=== PATIENT | female | born 1995 | race Caucasian/White ===

== ENCOUNTER → 2016-10-26 | Outpatient (CLI) | payer OTHER ==
[~2016-10-26] MED LIST: ATEN-173 PO; NORE-14 PO
[2016-10-28 01:33] LABS: CHLAMYDIA TRACH RNA*** NOT DETECTED (NOT DETECTED); GC (NEIS GONORRHOEAE)RNA** NOT DETECTED (NOT DETECTED)
== END | disposition home or self-care (01) ==
LOC: C.LABSPEC 11:29
PROVIDERS: ATTEND Obstetrics & Gynecology
DX: Z11.3 Encounter for screening for infections with a predominantly sexual mode of transmission (principal)

== ENCOUNTER → 2016-10-26 | Outpatient (CLI) | payer OTHER | END | disposition home or self-care (01) | LOC: C.PAPS 11:40 | PROVIDERS: ATTEND Obstetrics & Gynecology | DX: Z12.4 Encounter for screening for malignant neoplasm of cervix (principal) ==

== ENCOUNTER → 2016-12-26 | Outpatient (CLI) | payer OTHER, BC ==
[2016-12-26 17:46] LABS: HEMATOCRIT 34.8 % (37-47); MEAN CELL VOLUME 85.7 fL (80-100); MEAN CORPUSCULAR HEMOGLOBIN 29.6 pg (25-34); MEAN CORPUSCULAR HGB CONC 34.5 g/dl (32-36); MEAN PLATELET VOLUME 10.8 fL (7.4-10.4); PLATELET COUNT 338 K/uL (130-400); RED BLOOD COUNT 4.06 M/uL (4.2-5.4); WHITE BLOOD COUNT 7.46 K/uL (4.8-10.8)
[2016-12-26 17:58] LABS: BLOOD UREA NITROGEN 14 mg/dl (7-18); BUN/CREATININE RATIO 19.4 (10-20); CALCIUM 9.2 mg/dl (8.5-10.1); CARBON DIOXIDE 25 mmol/L (21-32); CHLORIDE 105 mmol/L (98-107); CREATININE 0.72 mg/dl (0.60-1.20); GLUCOSE 88 mg/dl (70-99); POTASSIUM 3.7 mmol/L (3.5-5.1); SODIUM 139 mmol/L (136-145)
== END | disposition home or self-care (01) ==
LOC: C.LAB1850 16:25
PROVIDERS: ATTEND Internal Medicine Cardiovascular Disease
DX: R53.83 Other fatigue (principal)

== ENCOUNTER → 2017-11-23 | Outpatient (CLI) | payer BC | END | disposition home or self-care (01) | LOC: C.LABSPEC 15:08 | PROVIDERS: ATTEND Physician Assistant | DX: Z01.419 Encounter for gynecological examination (general) (routine) without abnormal findings (principal) ==

== ENCOUNTER → 2017-11-23 | Outpatient (CLI) | payer BC | END | disposition home or self-care (01) | LOC: C.PAPS 16:16 | PROVIDERS: ATTEND Physician Assistant | DX: Z01.419 Encounter for gynecological examination (general) (routine) without abnormal findings (principal) ==

== ENCOUNTER 2022-10-10 03:58 | Inpatient (IN) ==
[2022-10-10] MEDS ORDERED: LACTATED RINGER'S 1,000 ML IV SCH ×2 (05:30→09:17)
[2022-10-10 05:47] LABS: Basophils # (auto) 0.06 K/uL (0-0.2); Basophils % (auto) 0.6 %; Eosinophils # (auto) 0.08 K/uL (0-0.50); Eosinophils % (auto) 0.7 %; Hematocrit (blood only) 31.7 % (34.1-44.9); Hemoglobin 10.4 g/dl (12.0-16.0); Immature Granulocytes # (auto) 0.12 K/uL (0.00-0.02); Immature Granulocytes % (auto) 1.1 %; Lymphocytes # (auto) 2.43 K/uL (1.2-3.4); Lymphocytes % (auto) 22.5 %; Mean Corpuscular Hemoglobin 28.6 pg (25.0-34.0); Mean Corpuscular Hgb Conc 32.8 g/dL (32.0-36.0); Mean Corpuscular Volume 87.1 fL (80.0-100.0); Mean Platelet Volume 11.3 fL (9.4-12.3); Monocytes # (auto) 0.96 K/uL (0.24-0.82); Monocytes % (auto) 8.9 %; Neutrophils # (auto) 7.13 K/uL (1.4-6.5); Neutrophils % (auto) 66.2 %; Platelet Count 281 K/uL (130-400); RDW Coefficient of Variation 14.4 % (11.5-14.5); RDW Standard Deviation 44.9 fL (36.4-46.3); Red Blood Count 3.64 M/uL (3.93-5.22); White Blood Count 10.78 K/ul (4.8-10.8)
[2022-10-10] MEDS ORDERED: ceFAZolin 2000MG 2,000 MG/15 ML SYR IV ONE (06:00)
[2022-10-10] MEDS ORDERED: CITRIC ACID/SODIUM CITRATE 15 ML UDC PO SCH (06:00)
--- NOTE | 2022-10-10 06:10 | History & Physical Report ---
Date of Service October 10, 2022 Assessment & Plan (1) : Plan: Admit to L&D. EFM/toco. Labs. Informed consent for section. Questions answered. Will proceed to OR for delivery by d/t breech presentation. Patient is agreeable. (2) Breech presentation: Admission and Anticipated Discharge Date Admission Date: October 10, 2022 History of Present Illness Chief Complaint: SROM Primary Care Provider: NO PCP 27yo @ 38 10/15, large gush of clear fluid at 0300 today. + movement, no vaginal bleeding. Occ ctx. Prolonged QT Interval -on metoprolol (managed by cardiology) -q4wk growths Hx Spinal Fusion -3rd trimester anesthesia consult-scheduled 08/05/22 1pm BREECH PRESENTATION C/S SCHEDULED FOR 10/21/[address] RIVERA Allergies Allergy/AdvReac Type Severity Reaction Status Date / Time Macrolide Antibiotics Allergy Intermediate D/t Verified 10/10/22 05:26 Prolonged QT Home Medications Medication Instructions Recorded Confirmed Type prenat.vits,tammy,[id number] 1 tab PO DAILY 03/11/22 10/06/22 History metoprolol tartrate 25 mg tablet 25 mg PO BID #60 tabs 07/25/22 10/06/22 Rx Patient History Medical History Anxiety History of COVID-19 Covid positive 06/05 (Home test + [place]), symptoms at time: cough, fever Long QT syndrome [facility] [place] cardiology office visit (07/25/22): "long QT syndrome. She was diagnosed with long QT syndrome at the age of 3 just following the recognition of long QT syndrome in her mother. Both her mother and the patient have a positive KCNQ1 gene mutation. The patient has never suffered an episode of syncope or presyncope." - pt changed from atenolol to metoprolol for her Scoliosis S-shaped thoracolumbar scoliosis. There is a 27 degree scoliosis convex to the left as measured from the superior T11 endplate to the inferior L4 endplate). There is a thoracic dextroscoliosis of 34 degrees as measured from the superior T11 endplate to the superior T4 endplate - per 02/21/08 x-ray Surgical History History of back surgery Fusion (for scoliosis) - 2014 Family History Grandmother Diabetes Mother Hypothyroidism Long QT syndrome Father Pure hypercholesterolemia Grandmother (Maternal) Long QT syndrome Sister Migraine headache Other Heart disease Hypertension Thyroid disorder Denies family history of Pancreatic cancer Ovarian cancer Prostate cancer Breast cancer Colorectal cancer Uterine cancer Social History Smoking Status: Never smoker Hx Alcohol Use: No Hx Substance Use: No Preferred Language: Maltese 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 Beliefs That Will Affect Care: None marital status: marital status details: Bobby Hannon (28) [phone] Current Living Situation: Spouse Current Living Situation Comment: lives with spouse, 3 dogs current occupational status: employed current occupation: [employer] Other Information That Helps Us Care for You: No Feels Safe at Home: Yes Safety Concerns: Feels Safe At This Time Review of Systems All systems reviewed & are unremarkable except as noted in HPI & below Physical Exam Physical Exam: Cervix 1.5/75/-2 per RN FHT Cat 1 [place] occ Constitutional: WD/WN, vitals as above Respiratory: normal respiratory effort, lungs clear to auscultation no respiratory distress Cardiovascular: Rate/Rhythm: regular rate and regular rhythm Gastrointestinal (Abdomen): Inspection/Auscultation: abdomen normal to inspection Percussion/Palpation: abdomen soft; abdomen nontender Gravid. No s/s chorio or abruption. Skin: no rashes, warm and dry Psychiatric: A+Ox3, euthymic affect Results & Data ([facility]) Vital Signs (Past 12 Hours) Vital Signs Temp Pulse Resp BP 10/10/22 04:12 36.7 C 85 20 131/99 10/10/22 04:10 85 131/99 Coding Level of Care Code None Diagnoses Z34.90 Breech presentation O32.1XX0
[2022-10-10] MEDS ORDERED: fentaNYL citrate 100 MCG/2 ML VIAL ONE (06:50)
[2022-10-10] MEDS ORDERED: MoRPHine SULFATE PF 1 MG/ML 10 ML AMP/VIAL ONE (06:50)
[2022-10-10] MEDS ORDERED: HYDROmorphone INJ 0.5 MG/0.5 ML SYR IV PRN (07:10)
[2022-10-10] MEDS ORDERED: MoRPHine SULFATE PF 1 MG/ML 10 ML AMP/VIAL INT SPINAL ONE (07:10)
[2022-10-10] MEDS ORDERED: NALOXONE HCL 0.08 MG in SYRINGE 1.8 ML IV PRN (07:10)
[2022-10-10] MEDS ORDERED: diphenhydrAMINE 50 MG/ML VIAL IV PRN (07:10)
[2022-10-10] MEDS ORDERED: LACTATED RINGER'S 500 ML IV PRN (07:10)
[2022-10-10] MEDS ORDERED: METOCLOPRAMIDE HCL 10 MG in SODIUM CHLORIDE 0.9% 50 ML IV PRN (07:10)
[2022-10-10] MEDS ORDERED: NALOXONE HCL 1 MG in SODIUM CHLORIDE 0.9% 1000ML 1,000 ML IV PRN (07:10)
[2022-10-10] MEDS ORDERED: NALOXONE HCL 0.4 MG/1 ML VIAL/CARP IV PRN (07:10)
[2022-10-10] MEDS ORDERED: ePHEDrine sulfate 50 MG/ML AMP IV PRN (07:10)
[2022-10-10] MEDS ORDERED: NALBUPHINE HCL INJ 10 MG/ML AMP IV PRN (07:10)
--- NOTE | 2022-10-10 07:10 | Anesthesiology Consultation ---
Date of Service October 10, 2022 Assessment & Plan ASA [id number] Proposed Anesthesia Anesthesia Type: MAC Spinal Risk / Benefits Reviewed With: PT / POA / Parent / Guardian, Accepts Plan and Informed Consent Obtained Additional Comments: pt did not take am Metoprol due at 630-700. History Surgery Operation Date: 10/10/22 07:30 Proposed Procedures p Section in LD(Bilateral) - Miri Jung DO Height/Weight Height: 5 ft 2 in Weight: 76.657 kg Allergies Allergy/AdvReac Type Severity Reaction Status Date / Time Macrolide Antibiotics Allergy Intermediate D/t Verified 10/10/22 05:26 Prolonged QT Medications Home Medications Medication Instructions Recorded Confirmed Last Taken prenat.vits,tammy,hqe-hpii-qlryu 1 tab PO DAILY 03/11/22 10/10/22 10/09/22 metoprolol tartrate 25 mg tablet 25 mg PO BID #60 tabs 07/25/22 10/10/22 10/09/22 20:00 NPO Date Last Intake of Fluids: 10/10/22 Time Last Intake of Fluids: 00:00 Date Last Intake of Solids: 10/10/22 Time Last Intake of Solids: 00:00 Past Medical History Medical History Anxiety History of COVID-19 Covid positive 06/05 (Home test + [place]), symptoms at time: cough, fever Long QT syndrome [facility] [place] (07/25/22): "long QT syndrome. She was diagnosed with long QT syndrome at the age of 3 just following the recognition of long QT syndrome in her mother. Both her mother and the patient have a positive KCNQ1 gene mutation. The patient has never suffered an episode of syncope or presyncope." - pt changed from atenolol to metoprolol for her Scoliosis S-shaped thoracolumbar scoliosis. There is a 27 degree scoliosis convex to the left as measured from the superior T11 endplate to the inferior L4 endplate). There is a thoracic dextroscoliosis of 34 degrees as measured from the superior T11 endplate to the superior T4 endplate - per 02/21/08 x-ray Exercise / Class Metabolic Activity II 4-5 Yardwork/Stairs/Walk up hill Past Family History Family History Grandmother Diabetes Mother Hypothyroidism Long QT syndrome Father Pure hypercholesterolemia Grandmother (Maternal) Long QT syndrome Sister Migraine headache Other Heart disease Hypertension Thyroid disorder Denies family history of Pancreatic cancer Ovarian cancer Prostate cancer Breast cancer Colorectal cancer Uterine cancer Past Surgical History Surgical History History of back surgery Fusion (for scoliosis) - 2014 Past Anesthesia History No Hx of Anesthesia Complications and No Family Hx of Anesthesia Complications History of PONV No Hx of PONV and No Hx of Motion Sickness Social History Smoking Status: Never smoker Hx Alcohol Use: No Hx Substance Use: No Review of Systems denies fever/cough/ colds/ chest pain/ SOB/ MADHAV denies MADHAV Physical Exam Vital Signs Last Vital Signs Temp 36.7 C 10/10/22 04:12 Pulse 78 10/10/22 06:56 Resp 20 10/10/22 04:12 BP 141/85 H 10/10/22 06:56 ENMT Mouth: no TMJ abnormality and no dentition abnormality Thyromental Distance: > or= 3.5 Finger Breadths Mallampati Class: II Neck neck extension not limited Respiratory normal respiratory effort; no respiratory distress Auscultation: lungs clear to auscultation bilaterally Cardiovascular Rate/Rhythm: regular rate and regular rhythm Neurologic moves all extremities Psychiatric Orientation: alert and oriented x 3 Testing Laboratory Results 10/10/22 05:38 Blood Type A Positive 10/10/22 05:38 Antibody Screen NEGATIVE 10/10/22 05:38
[2022-10-10] MEDS ORDERED: DC INTRASPINAL MORPHINE SCH (07:15)
[2022-10-10] MEDS ORDERED: SODIUM CHLORIDE 0.9% 1000ML 1,000 ML IV SCH (07:15)
[2022-10-10] MEDS ORDERED: NO NARCOTICS OR SEDATIVES SCH (07:15)
[2022-10-10 08:33] LABS: CO2 Cord Arterial Blood 66 mmHg (39.1-73.5); HCO3 Cord Arterial Blood 29 mmol/L (19.7-28.5); Oxygen Sat Cord Arterial Blood < 60.0 % (<60); PO2 Cord Arterial Blood 12 mmHg (4.1-31.7); pH Cord Arterial Blood 7.25 (7.1-7.38)
[2022-10-10 08:34] LABS: Base Excess Cord Venous Blood -2.1 mEq/L (-7.7-1.9); Cord Venous Blood HCO3 27 mmol/L (18.4-26.8); Cord Venous Blood PCO2 62 mmHg (30.4-57.2); Cord Venous Blood PO2 9 mmHg (14.1-43.3); Cord Venous Blood pH 7.24 (7.20-7.44); O2 Saturation Cord Venous Bld < 60.0 % (<68)
[2022-10-10] MEDS ORDERED: PHENYLEPHRINE 100MCG/ML 5ML SYR ONE (08:39)
[2022-10-10] MEDS ORDERED: ESMOLOL HCL INJ 10 MG/ML 10ML VIAL IV ONE (08:41)
[2022-10-10] MEDS ORDERED: OXYTOCIN 10 UNITS/ML 10ML VIAL ONE (08:54)
--- NOTE | 2022-10-10 09:13 | Operative Report ---
PG Post Operative Report Pre & Post Diagnosis Operation Date: 10/10/22 07:30 Pre-Op Diagnosis: Breech Presentation. Spontaneous rupture of membranes. Post-Op Diagnosis: Primary section. Breech Presentation. Spontaneous rupture of membranes. I identified the patient and participated in the time-out.: Yes Procedure Operation Date: 10/10/22 07:30 Actual Procedures Primary low transverse Section in LD, delivery of live female child at 0755. (Bilateral) - Miri Jung DO Surgeon Miri Jung DO Septic Tank Servicer Deandra López RN Estimated Blood Loss 700 Findings Consistent with Post-Op Diagnosis Viable female , Apgars 8/9. Weight pending, please see nursing records. Specimens placenta, cord blood, cord gas Drains [place] clear yellow Anesthesia Type Spinal Complications none Disposition Accompanied Patient To Recovery: No Disposition: L&D Indications 27yo @ 38 10/15, SROM and breech presentation. Description of Procedure The patient was seen in her labor and delivery room, risks benefits and alternatives to surgery were reviewed. Informed consent obtained. Questions were answered. She was taken to the operating room, spinal anesthesia was administered. She was then prepared and draped in the usual sterile fashion in the supine position with a leftward tilt. Timeout was confirmed. A Pfannenstiel skin incision was made with a scalpel, and carried through to the underlying layer of fascia. Fascia was nicked at midline, and this incision was extended bilaterally. The superior aspect of the fascial incision was grasped with Vinod clamps x2, elevated off the underlying rectus abdominis muscles, and dissected sharply and bluntly. In similar fashion, the inferior aspect of the fascial incision was dissected. The rectus abdominis muscles were , and the peritoneum was entered bluntly digitally. This was extended bilaterally. The bladder flap was taken down carefully using Metzenbaum scissors. Using a new scalpel, a low transverse uterine incision was created. Clear amniotic fluid noted. The infant was delivered from a michell breech presentation. The buttocks delivered, bilateral legs were swept medially, then arms swept medially and head delivered easily. Spontaneous cry on the field. The cord was doubly clamped and cut, and the infant was handed off to the waiting adjunct psychology faculty member. A segment was retained for cord gases. Cord blood was obtained. The placenta was delivered spontaneously intact. The uterus was exteriorized, and cleared of all clots and debris. Bilateral extensions into uterine vessels. These were secured immediately with [id number] sutures with 0 Vicryl. The hysterotomy incision was then reapproximated using 0 Vicryl in a running locked stitch. A second layer of the same suture was used to imbricate the incision. Posterior uterus was evaluated and normal. The uterus was returned to the abdomen, and gutters were cleared of clots and debris. Excellent hemostasis was observed. The fascial incision was reapproximated using 0 Vicryl in a running stitch. The subcutaneous tissue was irrigated, and reapproximated using 2-0 plain gut in a running stitch. The skin was reapproximated using 4-0 Vicryl in a running subcuticular stitch. Steri-Strips and a bandage were applied. The patient tolerated the procedure well, and will be taken to the recovery area in stable and good condition. Needle, sponge, instrument counts correct x 2. I attest to the content of the Intraoperative Record and any orders documented therein. Any exceptions are noted below. OB Procedure Charges 00538
[2022-10-10] MEDS ORDERED: DIPHTHERIA/TETANUS/PERTUSSIS 0.5 ML SYR/VIAL IM ONE (09:17)
[2022-10-10] MEDS ORDERED: BENZOCAINE 20% AER SPR 82.5 GM CAN EXT PRN (09:17)
[2022-10-10] MEDS ORDERED: MAGNESIUM HYDROXIDE SUSP 30 ML UDC PO PRN (09:17)
[2022-10-10] MEDS ORDERED: SENNA 8.6 MG TAB PO PRN (09:17)
[2022-10-10] MEDS ORDERED: HYDROCORTISONE ACETATE 25 MG SUPP PR PRN (09:17)
[2022-10-10] MEDS: OXYTOCIN 30 UNITS in LACTATED RINGER'S 1,000 ML IV SCH ×2 (11:05→19:45)
[2022-10-10] MEDS: KETOROLAC 30 MG/ML VIAL IV PRN ×2 (13:48→19:43)
[2022-10-10] MEDS: SIMETHICONE 80 MG CHEW PO SCH ×3 (13:49→21:35)
--- NOTE | 2022-10-10 20:47 | Anesthesiology Progress Note ---
Date of Service October 10, 2022 Anesthesia Post Procedure Vital Signs Vital Signs: Temp Pulse Pulse Resp BP BP Pulse Ox 10/10/22 19:50 18 98 10/10/22 19:50 37.3 C 88 18 121/76 98 10/10/22 19:50 10/10/22 17:40 18 98 10/10/22 18:11 16 98 10/10/22 16:33 16 97 10/10/22 15:35 16 99 10/10/22 15:00 37.0 C 80 18 119/72 98 10/10/22 14:35 18 98 10/10/22 13:35 18 97 10/10/22 12:35 16 98 10/10/22 11:35 10/10/22 11:35 37.1 C 80 16 126/77 97 10/10/22 11:35 16 97 10/10/22 11:30 36.9 C 18 10/10/22 10:30 20 10/10/22 10:00 36.7 C 18 10/10/22 09:50 16 10/10/22 09:40 18 10/10/22 09:30 18 10/10/22 09:20 16 10/10/22 09:10 18 10/10/22 09:00 36.8 C 18 10/10/22 04:12 36.7 C 85 20 131/99 10/10/22 11:21 99 10/10/22 11:21 83 10/10/22 11:16 98 10/10/22 11:16 81 10/10/22 11:11 99 10/10/22 11:11 81 10/10/22 11:06 98 10/10/22 11:06 83 10/10/22 11:07 83 10/10/22 11:07 132/62 10/10/22 11:01 98 10/10/22 11:01 78 10/10/22 10:56 99 10/10/22 10:56 80 10/10/22 10:57 80 10/10/22 10:57 135/63 10/10/22 10:51 99 10/10/22 10:51 86 10/10/22 10:47 82 10/10/22 10:47 134/59 L 10/10/22 10:46 99 10/10/22 10:46 81 10/10/22 10:41 96 10/10/22 10:42 92 10/10/22 10:41 83 10/10/22 10:42 82 10/10/22 10:36 99 10/10/22 10:36 80 10/10/22 10:37 79 10/10/22 10:37 130/59 L 10/10/22 10:31 98 10/10/22 10:31 78 10/10/22 10:28 92 10/10/22 10:28 77 10/10/22 10:27 80 10/10/22 10:27 148/89 H 10/10/22 10:25 99 10/10/22 10:25 76 10/10/22 10:21 92 10/10/22 10:21 79 10/10/22 10:20 99 10/10/22 10:20 75 10/10/22 10:17 76 10/10/22 10:17 140/77 10/10/22 10:15 100 10/10/22 10:15 76 10/10/22 10:10 100 10/10/22 10:10 74 10/10/22 10:07 75 10/10/22 10:07 137/61 10/10/22 10:05 99 10/10/22 10:05 81 10/10/22 10:00 99 10/10/22 10:00 77 10/10/22 09:56 65 10/10/22 09:56 124/70 10/10/22 09:55 99 10/10/22 09:55 70 10/10/22 09:50 100 10/10/22 09:50 70 10/10/22 09:47 72 10/10/22 09:47 121/56 L 10/10/22 09:45 99 10/10/22 09:45 69 10/10/22 09:40 100 10/10/22 09:40 69 10/10/22 09:37 73 10/10/22 09:37 138/58 L 10/10/22 09:35 100 10/10/22 09:35 70 10/10/22 09:30 100 10/10/22 09:30 71 10/10/22 09:26 173 H 10/10/22 09:26 125/58 L 10/10/22 09:25 98 10/10/22 09:25 76 10/10/22 09:20 94 10/10/22 09:20 66 10/10/22 09:16 66 10/10/22 09:16 127/59 L 10/10/22 09:15 100 10/10/22 09:15 63 10/10/22 09:10 100 10/10/22 09:10 73 10/10/22 09:08 79 L 10/10/22 09:08 71 10/10/22 09:05 100 10/10/22 09:05 65 10/10/22 09:06 67 10/10/22 09:06 121/64 10/10/22 09:02 67 10/10/22 09:02 88/69 L 10/10/22 09:00 100 10/10/22 09:00 67 10/10/22 06:56 78 10/10/22 06:56 141/85 H 10/10/22 04:10 85 131/99 Pulse Ox O2 Del Method O2 Del Method 10/10/22 19:50 10/10/22 19:50 Room Air 10/10/22 19:50 98 Room Air 10/10/22 17:40 10/10/22 18:11 10/10/22 16:33 10/10/22 15:35 10/10/22 15:00 Room Air 10/10/22 14:35 10/10/22 13:35 10/10/22 12:35 10/10/22 11:35 Room Air 10/10/22 11:35 Room Air 10/10/22 11:35 10/10/22 11:30 10/10/22 10:30 10/10/22 10:00 10/10/22 09:50 10/10/22 09:40 10/10/22 09:30 10/10/22 09:20 10/10/22 09:10 10/10/22 09:00 10/10/22 04:12 10/10/22 11:21 10/10/22 11:21 10/10/22 11:16 10/10/22 11:16 10/10/22 11:11 10/10/22 11:11 10/10/22 11:06 10/10/22 11:06 10/10/22 11:07 10/10/22 11:07 10/10/22 11:01 10/10/22 11:01 10/10/22 10:56 10/10/22 10:56 10/10/22 10:57 10/10/22 10:57 10/10/22 10:51 10/10/22 10:51 10/10/22 10:47 10/10/22 10:47 10/10/22 10:46 10/10/22 10:46 10/10/22 10:41 10/10/22 10:42 10/10/22 10:41 10/10/22 10:42 10/10/22 10:36 10/10/22 10:36 10/10/22 10:37 10/10/22 10:37 10/10/22 10:31 10/10/22 10:31 10/10/22 10:28 10/10/22 10:28 10/10/22 10:27 10/10/22 10:27 10/10/22 10:25 10/10/22 10:25 10/10/22 10:21 10/10/22 10:21 10/10/22 10:20 10/10/22 10:20 10/10/22 10:17 10/10/22 10:17 10/10/22 10:15 10/10/22 10:15 10/10/22 10:10 10/10/22 10:10 10/10/22 10:07 10/10/22 10:07 10/10/22 10:05 10/10/22 10:05 10/10/22 10:00 10/10/22 10:00 10/10/22 09:56 10/10/22 09:56 10/10/22 09:55 10/10/22 09:55 10/10/22 09:50 10/10/22 09:50 10/10/22 09:47 10/10/22 09:47 10/10/22 09:45 10/10/22 09:45 10/10/22 09:40 10/10/22 09:40 10/10/22 09:37 10/10/22 09:37 10/10/22 09:35 10/10/22 09:35 10/10/22 09:30 10/10/22 09:30 10/10/22 09:26 10/10/22 09:26 10/10/22 09:25 10/10/22 09:25 10/10/22 09:20 10/10/22 09:20 10/10/22 09:16 10/10/22 09:16 10/10/22 09:15 10/10/22 09:15 10/10/22 09:10 10/10/22 09:10 10/10/22 09:08 10/10/22 09:08 10/10/22 09:05 10/10/22 09:05 10/10/22 09:06 10/10/22 09:06 10/10/22 09:02 10/10/22 09:02 10/10/22 09:00 10/10/22 09:00 10/10/22 06:56 10/10/22 06:56 10/10/22 04:10 Pain Intensity Abdomen: Pain Intensity: 2 Transfer of Care Handoff Completed per policy Notes Mental Status: alert / awake / arousable and participated in evaluation Patient Amnestic to Procedure: Yes Nausea / Vomiting: adequately controlled Pain: adequately controlled Airway Patency, RR, SpO2: stable & adequate BP & HR: stable & adequate Hydration State: stable & adequate Neuraxial Anesthesia: was administered and sensory block is resolving Anesthetic Complications: no major complications apparent and Pt Satisfied with anesthetic care
[2022-10-10] MEDS: DOCUSATE SODIUM 100 MG CAP PO SCH (21:35)
[2022-10-10] MEDS: METOPROLOL TARTRATE 25 MG TAB PO SCH (21:36)
[2022-10-11] MEDS: KETOROLAC 30 MG/ML VIAL IV PRN (00:49)
[2022-10-11] MEDS ORDERED: PROMETHAZINE HCL 25 MG in SODIUM CHLORIDE 0.9% 50 ML IV PRN (01:10)
[2022-10-11] MEDS ORDERED: diphenhydrAMINE Capsule 25 MG CAP PO PRN (01:10)
[2022-10-11] MEDS ORDERED: KETOROLAC 30 MG/ML VIAL IV PRN (01:10)
[2022-10-11] MEDS ORDERED: diphenhydrAMINE 50 MG/ML VIAL IV PRN (01:10)
--- NOTE | 2022-10-11 05:36 | Obstetrical Progress Note ---
Date of Service <Katie GarciaprinceangelinaDO - Last Filed: 10/11/22 06:31> October 11, 2022 Assessment & Plan <Katie GarciaprinceangelinaDO - Last Filed: 10/11/22 06:31> (1) care following delivery: Patient is PPD 1 s/p primary C section and doing well. - Eating well, voiding well, ambulating well - Vitals reviewed and within normal limits - Pain well controlled with analgesics - OOB, ambulation, diet progression as tolerated - Blood type: A+, GBS neg, rubella immune - Plan to discharge tomorrow - After discharge, 6 week follow up with Dr. Jung <Neris Mackay MD - Last Filed: 10/11/22 06:54> (1) care following delivery: Subjective <Katie GarciaprinceangelinaDO - Last Filed: 10/11/22 06:31> Patient is a 27 yo female is POD #1 following delivery at 38+1 weeks. She reports feeling well overall this morning. She endorses abdominal cramping and 4/10 pain well managed on analgesics. Voiding without issue. Tolerating regular meals overnight and able to ambulate some. She has passed gas and no bowel movement. Persistent lochia with some improvement this morning. Currently bottle feeding. Review of Systems Denies fever, chills, sweats. Denies SOB, difficulty breathing, chest pain, palpitations, and chest pressure. Denies breast pain. Denies dysuria. Denies headache or changes in vision. Physical Exam <Katie GarciaDO loraine - Last Filed: 10/11/22 06:31> General: Alert and oriented. No acute distress. CV: Regular rate and rhythm. No murmurs. Respiratory: CTA bilaterally. No rhonchi, wheezes, or crackles. No increased work of breathing. Abdomen: Positive bowel sounds. Soft, nontender, and nondistended. Uterus: Fundus firm and palpable 2 cm below umbilicus. Surgical scar clean and healing well. Lower extremities: No LE edema. No deep calf pain. Be's negative bilaterally. Results & Data ([facility]) <Katie BeasleyAta Johnson DO - Last Filed: 10/11/22 06:31> Vital Signs (Past 12 Hours) Vital Signs Temp Pulse Resp BP Pulse Ox Pulse Ox O2 Del Method 10/11/22 04:30 37.1 C 80 18 136/72 98 Room Air 10/11/22 00:45 18 98 10/11/22 00:45 37.3 C 18 131/75 98 Room Air 10/11/22 00:45 98 10/11/22 01:10 18 98 10/10/22 20:00 18 97 10/10/22 21:00 18 98 10/10/22 22:15 18 98 10/10/22 19:50 18 98 10/10/22 19:50 37.3 C 88 18 121/76 98 Room Air 10/10/22 19:50 98 10/10/22 17:40 18 98 10/10/22 18:11 16 98 O2 Del Method 10/11/22 04:30 10/11/22 00:45 10/11/22 00:45 10/11/22 00:45 Room Air 10/11/22 01:10 10/10/22 20:00 10/10/22 21:00 10/10/22 22:15 10/10/22 19:50 10/10/22 19:50 10/10/22 19:50 Room Air 10/10/22 17:40 10/10/22 18:11 <Neris Mackay MD - Last Filed: 10/11/22 06:54> Co-Signing Physician Notes Resident Physician Supervision Note: I interviewed and examined the patient. Discussed with Dr. Johnson and agree with findings and plan as documented in the note. Any exceptions or clarifications are listed here: [ ] Documented By: Neris Mackay MD, FACOG Resident Activity Tracking <Katie Johnson DO - Last Filed: 10/11/22 06:31> Resident Involvement: Resident Care Provided Care Provided: OB Delivery
[2022-10-11] MEDS ORDERED: IBUPROFEN 600 MG TAB PO STA (06:33)
[2022-10-11] MEDS ORDERED: oxyCODONE/ACETAMINOPHEN 5mg/325mg TAB PO STA (06:35)
[2022-10-11] MEDS: METOPROLOL TARTRATE 25 MG TAB PO SCH ×2 (07:24→21:51)
[2022-10-11] MEDS: DOCUSATE SODIUM 100 MG CAP PO SCH ×2 (07:25→19:56)
[2022-10-11] MEDS: PRENATAL VITAMIN 1 TAB PO SCH (07:28)
[2022-10-11] MEDS: FERROUS SULFATE 325 MG TAB PO SCH (07:28)
[2022-10-11] MEDS: SIMETHICONE 80 MG CHEW PO SCH ×4 (07:28→19:56)
[2022-10-11 07:31] LABS: Basophils # (auto) 0.05 K/uL (0-0.2); Basophils % (auto) 0.3 %; Eosinophils # (auto) 0.01 K/uL (0-0.50); Eosinophils % (auto) 0.1 %; Hematocrit (blood only) 23.3 % (34.1-44.9); Hemoglobin 7.8 g/dl (12.0-16.0); Immature Granulocytes # (auto) 0.14 K/uL (0.00-0.02); Lymphocytes # (auto) 1.67 K/uL (1.2-3.4); Lymphocytes % (auto) 11.4 %; Mean Corpuscular Hemoglobin 29.1 pg (25.0-34.0); Mean Corpuscular Hgb Conc 33.5 g/dL (32.0-36.0); Mean Corpuscular Volume 86.9 fL (80.0-100.0); Mean Platelet Volume 11.1 fL (9.4-12.3); Monocytes # (auto) 1.01 K/uL (0.24-0.82); Monocytes % (auto) 6.9 %; Neutrophils # (auto) 11.82 K/uL (1.4-6.5); Neutrophils % (auto) 80.3 %; Platelet Count 208 K/uL (130-400); RDW Coefficient of Variation 14.8 % (11.5-14.5); RDW Standard Deviation 45.9 fL (36.4-46.3); Red Blood Count 2.68 M/uL (3.93-5.22)
[2022-10-11 07:54] LABS: Polychromasia 1+
[2022-10-11] MEDS: IBUPROFEN 600 MG TAB PO PRN ×2 (12:21→18:00)
[2022-10-11] MEDS: oxyCODONE/ACETAMINOPHEN 5mg/325mg TAB PO PRN ×2 (12:21→18:00)
[2022-10-11] MEDS ORDERED: bisacodyL 5 MG TABEC PO SCH (20:00)
[2022-10-12] MEDS: oxyCODONE/ACETAMINOPHEN 5mg/325mg TAB PO PRN ×3 (00:09→14:03)
[2022-10-12] MEDS: IBUPROFEN 600 MG TAB PO PRN ×3 (00:09→14:03)
--- NOTE | 2022-10-12 05:42 | Obstetrical Progress Note ---
Date of Service <Ktaie Karimi DO Elizabeth - Last Filed: 10/12/22 06:20> October 12, 2022 Assessment & Plan <Katie GarciaDO loraine - Last Filed: 10/12/22 06:20> (1) care following delivery: Patient is PPD 2 s/p primary C section and doing well. - Eating well, voiding well, ambulating well - Vitals reviewed and within normal limits - Pain well controlled with analgesics - OOB, ambulation, diet progression as tolerated - Blood type: A+, GBS neg, rubella immune - Plan to discharge today - After discharge, 6 week follow up with Dr. Jung <Coreen House MD - Last Filed: 10/12/22 06:59> (1) care following delivery: Subjective <Katie GarciaDO loraine - Last Filed: 10/12/22 06:20> Patient is a 27 yo female is POD #2 following delivery at 38+1 weeks. She reports feeling well overall this morning. She endorses abdominal cramping and 2/10 pain well managed on analgesics. Voiding without issue. Tolerating regular meals overnight and able to ambulate some. She has passed gas and no bowel movement. Persistent lochia with some improvement this morning. Currently bottle feeding. Review of Systems Denies fever, chills, sweats. Denies SOB, difficulty breathing, chest pain, palpitations, and chest pressure. Denies breast pain. Denies dysuria. Denies headache or changes in vision. Physical Exam <Katie Karimi DO Elizabeth - Last Filed: 10/12/22 06:20> General: Alert and oriented. No acute distress. CV: Regular rate and rhythm. No murmurs. Respiratory: CTA bilaterally. No rhonchi, wheezes, or crackles. No increased work of breathing. Abdomen: Positive bowel sounds. Soft, nontender, and nondistended. Uterus: Fundus firm and palpable 3 cm below umbilicus. Surgical scar clean and healing well w/ one 1 cm area of blood visible through tape. Lower extremities: No LE edema. No deep calf pain. Be's negative bilaterally. Results & Data ([facility]) <Katie Sachi Johnson DO - Last Filed: 10/12/22 06:20> Vital Signs (Past 12 Hours) Vital Signs Temp Pulse Resp BP O2 Del Method 10/12/22 00:20 36.4 C L 89 18 124/74 10/11/22 19:50 37.0 C 88 18 122/71 Room Air <Coreen House MD - Last Filed: 10/12/22 06:59> Co-Signing Physician Notes Resident Physician Supervision Note: I interviewed and examined the patient. Discussed with Dr. Johnson and agree with findings and plan as documented in the note. Any exceptions or clarifications are listed here: POD2 s/p CS, doing well. VSS, few mild elevations. Exam benign and wnl, incision c/d/i covered in steris. Will check CMP and do BP check outpt, otherwise stable for d/c home today Documented By: Coreen House MD Resident Activity Tracking <Katie Johnson DO - Last Filed: 10/12/22 06:20> Resident Involvement: Resident Care Provided Care Provided: OB Delivery
[2022-10-12 07:16] LABS: Hematocrit (blood only) 20.3 % (34.1-44.9); Hemoglobin 6.6 g/dl (12.0-16.0)
[2022-10-12] MEDS: PRENATAL VITAMIN 1 TAB PO SCH (07:38)
[2022-10-12] MEDS: DOCUSATE SODIUM 100 MG CAP PO SCH (07:38)
[2022-10-12] MEDS: FERROUS SULFATE 325 MG TAB PO SCH (07:38)
[2022-10-12] MEDS: SIMETHICONE 80 MG CHEW PO SCH ×2 (07:38→13:15)
[2022-10-12] MEDS ORDERED: SODIUM CHLORIDE 0.9% 250 ML IV PRN (07:40)
[2022-10-12 07:43] LABS: Albumin Level 3.2 gm/dl (3.4-5.0); BUN Creatinine Ratio 12.3 (10-20); Bilirubin,Total 0.2 mg/dl (0.2-1.0); Creatinine Clr Calc Pharmacy 124.6 ml/min; Est GFR (Non-African American) 121.7 ml/min; Globulin 3.3 gm/dl (2.5-4.0); Potassium 4.1 mmol/L (3.5-5.1); Total Protein 6.5 gm/dl (6.0-8.3)
[2022-10-12] MEDS: METOPROLOL TARTRATE 25 MG TAB PO SCH (08:42)
[2022-10-12] MEDS ORDERED: bisacodyL 10 MG SUPP PR PRN (09:03)
[2022-10-12 12:52] LABS: Hematocrit (blood only) 25.2 % (34.1-44.9); Hemoglobin 8.4 g/dl (12.0-16.0); Mean Corpuscular Hemoglobin 29.4 pg (25.0-34.0); Mean Corpuscular Hgb Conc 33.3 g/dL (32.0-36.0); Mean Corpuscular Volume 88.1 fL (80.0-100.0); Mean Platelet Volume 10.8 fL (9.4-12.3); Platelet Count 256 K/uL (130-400); RDW Coefficient of Variation 14.8 % (11.5-14.5); RDW Standard Deviation 47.4 fL (36.4-46.3); Red Blood Count 2.86 M/uL (3.93-5.22)
--- NOTE | 2022-10-13 22:26 | Discharge Summary ---
Date of Service October 13, 2022 Admission HPI Per Admitting Provider 27yo @ 38 10/15, large gush of clear fluid at 0300 today. + movement, no vaginal bleeding. Occ ctx. Prolonged QT Interval -on metoprolol (managed by cardiology) -q4wk growths Hx Spinal Fusion -3rd trimester anesthesia consult-scheduled 08/05/22 1pm BREECH PRESENTATION C/S SCHEDULED FOR 10/21/[address] RIVERA Discharge Data Consultations 10/10/22 05:18 Consult Anesthesiology Stat Procedures Performed Operation Date: 10/10/22 07:30 Actual Procedures p Section in LD, delivery of live female child at 0755. (Bilateral) - Miri Jung DO Hospital Course (1) Breech presentation: Admitted after SROM with breech presentation. Primary low transverse se ction performed. 1u PRBC transfused on POD2 d/t symptomatic anemia. DC home in stable condition POD2. Please see her chart for further details. Coding Level of Care Code None Diagnoses Breech presentation O32.1XX0
== END 2022-10-12 14:15 | disposition home or self-care (01) | DRG 786 ==
LOC: OPB 03:58 → 4S1 04:01 → 4E2 11:57